=== PATIENT | male | born 1950 | race Caucasian/White ===

== ENCOUNTER → 2022-08-25 08:52 | Outpatient (CLI) | payer MEDICARE, OTHER, SELFPAY ==
[2022-08-25 09:42] LABS: Influenza A - CEPHEID Flu A NEGATIVE (NEGATIVE); Influenza B - CEPHEID Flu B NEGATIVE (NEGATIVE); Respiratory Syncytial Virus Negative (Negative)
[2022-08-25 10:36] LABS: COVID-19 CEPHEID 4-PLEX PCR Negative (Negative)
== END ==
PROVIDERS: Visit Provider Physician Assistant
DX: J06.9 Acute upper respiratory infection, unspecified (principal)
CPT/HCPCS: 0241U